=== PATIENT | female | born 1990 | race Caucasian/White ===

== ENCOUNTER 2020-06-28 10:12 | Observation (INO) | payer BC, OTHER ==
[~2020-06-28] VITALS: Ht 162.6 cm; Wt 58.5 kg
[~2020-06-28 10:12] MED LIST: PRENATAL VITAM1 EAC8 PO
[2020-06-28 11:03] LABS: HEMOGLOBIN 12.5 gm/dl (12.3-15.3); RED BLOOD COUNT 4.15 M/UL (4.00-5.10); WHITE BLOOD COUNT 5.7 K/UL (4.5-11.0)
[2020-06-28] MEDS ORDERED: IBU600 MG PO (11:06)
[2020-06-28] MEDS ORDERED: HYDROCODON-ACE1 EAC4 PO (11:06)
[2020-06-28 15:47] LABS: WHITE BLOOD COUNT 6.4 K/UL (4.5-11.0)
[2020-06-28 15:49] LABS: HEMOGLOBIN 10.2 gm/dl (12.3-15.3); RED BLOOD COUNT 3.43 M/UL (4.00-5.10)
--- NOTE | 2020-06-29 15:38 | NUR ---
PT DISCHARGE DONE ON OB PAPERWORK DONE BY PHYSICIAN. VS WERE 119/83, HR 83, O2SAT 99%, TEMP 98.0. PT HAS NO COMPLAINTS OR PAIN AT TIME OF DC. PT DC'D HOME WITH
[2020-07-02] MEDS ORDERED: HYDROCODON-ACE1 EAC4 PO (14:51)
[2020-07-02] MEDS ORDERED: VIBRAMYCIN100 MG PO (14:51)
[2020-07-02] MEDS ORDERED: IBU600 MG PO (14:52)
[2020-07-03] MEDS ORDERED: FLAGYL500 MG PO (13:28)
[2020-07-03] MEDS ORDERED: CIPRO500 MG PO (13:28)
== END 2020-06-29 15:42 | disposition home or self-care (01) ==
LOC: OR 10:12 → MED SURG 4 18:07 → OR 18:39 → MED SURG 4 18:39
PROVIDERS: ADMIT Obstetrics & Gynecology
DX: O02.0 Blighted ovum and nonhydatidiform mole (principal); R55 Syncope and collapse; Z3A.01 Less than 8 weeks gestation of pregnancy
CPT/HCPCS: 36415; 81001; 85025; 85027; 86850; 86900; 86901; 86920; 96374; G0378; J2001; J2250; J2405; J2550; J2704; J2795; J3010; J3360; J7120

== ENCOUNTER → 2020-07-01 | Outpatient (CLI) | payer BC, OTHER ==
[~2020-07-01] MED LIST changes: +CIPRO500 MG PO; +FLAGYL500 MG PO; +HYDROCODON-ACE1 EAC4 PO; +IBU600 MG PO; +VIBRAMYCIN100 MG PO
[2020-07-01 14:07] LABS: HEMOGLOBIN 10.8 gm/dl (12.3-15.3); RED BLOOD COUNT 3.63 M/UL (4.00-5.10)
[2020-07-01 14:09] LABS: WHITE BLOOD COUNT 4.7 K/UL (4.5-11.0)
== END ==
LOC: LAB 13:50
PROVIDERS: Nurse Practitioner Family
DX: R50.9 Fever, unspecified (principal)
CPT/HCPCS: 36415; 85025; 86140

== ENCOUNTER → 2020-07-03 | Day surgery (SDC) | payer BC, OTHER ==
[2020-07-03 10:53] LABS: HEMOGLOBIN 11.5 gm/dl (12.3-15.3); RED BLOOD COUNT 3.86 M/UL (4.00-5.10); WHITE BLOOD COUNT 4.8 K/UL (4.5-11.0)
[2020-07-03 11:16] LABS: BUN/CREATININE RATIO 25 (0-10)
== END | disposition home or self-care (01) ==
LOC: OR 10:06
PROVIDERS: Obstetrics & Gynecology
DX: O03.87 Sepsis following complete or unspecified spontaneous abortion (principal); A41.9 Sepsis, unspecified organism; O34.219 Maternal care for unspecified type scar from previous cesarean delivery; O13.1 Gestational [pregnancy-induced] hypertension without significant proteinuria, first trimester; Z82.49 Family history of ischemic heart disease and other diseases of the circulatory system; Z83.3 Family history of diabetes mellitus; Z20.822 Contact with and (suspected) exposure to COVID-19; Z3A.01 Less than 8 weeks gestation of pregnancy
CPT/HCPCS: 36415; 80048; 82962; 85025; 87070; 87205; 87635; J1100; J1956; J2001; J2250; J2405; J2704; J2795; J3010; J7120

== ENCOUNTER → 2021-03-20 | Outpatient (CLI) | payer MEDICAID ==
[~2021-03-20] MED LIST changes: +PHENERGAN 25 MG25 M1 PO
== END ==
LOC: HEART 5 11:00
DX: O99.419 Diseases of the circulatory system complicating pregnancy, unspecified trimester (principal); R00.0 Tachycardia, unspecified

== ENCOUNTER 2021-03-23 09:24 | Outpatient (CLI) | payer OTHER ==
[~2021-03-23 09:24] MED LIST changes: -PHENERGAN 25 MG25 M1 PO
[2021-03-23] MEDS ORDERED: PHENERGAN 25 MG25 M1 PO (14:34)
== END 2021-03-23 10:50 | disposition home or self-care (01) ==
LOC: GENOP 09:24
DX: Z53.9 Procedure and treatment not carried out, unspecified reason (principal)
CPT/HCPCS: 81001; 87086

== ENCOUNTER 2021-03-23 11:45 | Emergency (ER) | payer MEDICAID ==
[2021-03-23 12:46] LABS: HEMOGLOBIN 9.2 gm/dl (12.3-15.3); RED BLOOD COUNT 3.36 M/UL (4.00-5.10); WHITE BLOOD COUNT 6.1 K/UL (4.5-11.0)
[2021-03-23 13:16] LABS: BUN/CREATININE RATIO 9 (0-10)
[2021-03-23] MEDS ORDERED: PHENERGAN 25 MG25 M1 PO (14:34)
== END 2021-03-23 14:50 | disposition home or self-care (01) ==
LOC: ER1 11:45
PROVIDERS: Physician Assistant
DX: O99.013 Anemia complicating pregnancy, third trimester (principal); D50.9 Iron deficiency anemia, unspecified; O21.2 Late vomiting of pregnancy; O99.891 Other specified diseases and conditions complicating pregnancy; R51.9 Headache, unspecified; Z3A.31 31 weeks gestation of pregnancy; Z86.16 Personal history of COVID-19; Z79.899 Other long term (current) drug therapy
CPT/HCPCS: 80053; 81001; 83540; 83550; 83690; 85025; 96374; 96376; 99284; J2405

== ENCOUNTER → 2021-04-29 | Outpatient (CLI) | payer OTHER ==
[~2021-04-29] MED LIST changes: +PHENERGAN 25 MG25 M1 PO
== END ==
LOC: HEART 5 13:30
DX: R00.0 Tachycardia, unspecified (principal)

== ENCOUNTER 2021-05-19 07:07 | Inpatient (IN) | payer OTHER ==
[~2021-05-19] VITALS: Ht 162.6 cm; Wt 70.3 kg
[2021-05-19 08:26] LABS: HEMOGLOBIN 9.2 gm/dl (12.3-15.3); RED BLOOD COUNT 3.61 M/UL (4.00-5.10); WHITE BLOOD COUNT 6.5 K/UL (4.5-11.0)
[2021-05-19] MEDS ORDERED: PRENATAL VITAM1 EAC3 PO (08:34)
[2021-05-19] MEDS ORDERED: IBUPROFEN600 MG PO (10:27)
[2021-05-19] MEDS ORDERED: COLACE 100MG C100 MG PO (10:27)
[2021-05-19] MEDS ORDERED: HYDROCODON-ACE1 EAC6 PO (10:27)
[2021-05-20 07:10] LABS: HEMOGLOBIN 7.5 gm/dl (12.3-15.3)
[2021-05-21 12:50] LABS: HEMOGLOBIN 8.8 gm/dl (12.3-15.3)
== END 2021-05-21 16:05 | disposition home or self-care (01) | DRG 788 ==
LOC: GENOP 07:07 → OB 07:21
PROVIDERS: Obstetrics & Gynecology; ADMIT Obstetrics & Gynecology
PROC: 10D00Z1 Extraction of Products of Conception, Low, Open Approach (ICD-10-PCS; principal; 2021-05-19 11:24)
DX: O34.211 Maternal care for low transverse scar from previous cesarean delivery (principal); O99.02 Anemia complicating childbirth; D64.9 Anemia, unspecified; O99.344 Other mental disorders complicating childbirth; F41.9 Anxiety disorder, unspecified; Z20.822 Contact with and (suspected) exposure to COVID-19; Z37.0 Single live birth; Z3A.39 39 weeks gestation of pregnancy; Z83.3 Family history of diabetes mellitus; Z82.49 Family history of ischemic heart disease and other diseases of the circulatory system; Z79.899 Other long term (current) drug therapy
CPT/HCPCS: 36415; 81001; 82800; 85014; 85018; 85025; C9113; J0690; J1170; J1200; J1885; J2250; J2274; J2300; J2370; J2405; J2590; J3010; J7120; U0002